=== PATIENT | male | born 1990 | race Caucasian/White ===

== ENCOUNTER 2019-10-08 13:00 | Emergency (ER) | payer MEDICAID ==
[~2019-10-08] VITALS: Ht 175.3 cm; Wt 80.0 kg
[~2019-10-08 13:00] MED LIST: LIDOcaine 1% W/epiNEPHrine 1:100,000 20ml vial ONE
[2019-10-08 13:08] VITALS: BP 100/78
[2019-10-08] MEDS ORDERED: bacitracin 15gm ointment TP ONE (13:55)
[2019-10-08] MEDS ORDERED: TETanus/Pertussis (Acell)/Diphther VAC/PF (Tdap-Adult) 0.5ml syringe IMVAC ONE (13:55)
== END 2019-10-08 14:40 | disposition home or self-care (01) ==
LOC: ER 13:01
DX: S01.01XA Laceration without foreign body of scalp, initial encounter (principal); S21.219A Laceration without foreign body of unspecified back wall of thorax without penetration into thoracic cavity, initial encounter; Y04.8XXA Assault by other bodily force, initial encounter; Y93.89 Activity, other specified; Y92.89 Other specified places as the place of occurrence of the external cause; Y99.8 Other external cause status
CPT/HCPCS: 12004; 90471; 90715; 99284

== ENCOUNTER 2020-02-18 06:24 | Emergency (ER) | payer MEDICAID ==
[~2020-02-18] VITALS: Ht 175.3 cm; Wt 72.7 kg
[2020-02-18 06:37] VITALS: BP 122/68
== END 2020-02-18 07:20 | disposition home or self-care (01) ==
LOC: ER 06:25
DX: F11.10 Opioid abuse, uncomplicated (principal); F17.200 Nicotine dependence, unspecified, uncomplicated; Z72.89 Other problems related to lifestyle
CPT/HCPCS: 99281

== ENCOUNTER 2024-09-07 09:18 | Outpatient (CLI) | payer MEDICAID | END 2024-09-07 23:59 | disposition home or self-care (01) | LOC: RAD 09:18 | PROVIDERS: ATTEND Physician Assistant | DX: I44.0 Atrioventricular block, first degree (principal); F11.20 Opioid dependence, uncomplicated | CPT/HCPCS: 93005 ==

== ENCOUNTER → 2024-11-29 | Outpatient (CLI) | payer MEDICAID ==
--- NOTE | 2024-11-29 07:51 | ELECTROCARDIOGRAPH REPORT ---
[facility] Test Date: 2024-11-29 Test Time: 07:30:39 Pat Name: WILLIS RIOJAS Department: PRE/OP CARDIOLOGY Room: Gender: M Political Advisor: JANELL : 1990 Requested By: JEFF CHRISTIAN Order Number: [id number] Reading MD: Dr. DIDI Khanna Measurements Intervals [place] Rate: 84 P: 78 CA: 130 QRS: 75 QRSD: 91 T: 62 QT: 388 QTc: 459 Interpretive Statements Sinus rhythm Electronically Signed On 11-29-2024 19:48:[address] DIDI Khanna Please click the below link to view image of tracing.
== END | disposition home or self-care (01) ==
LOC: RAD 07:18
PROVIDERS: ATTEND Physician Assistant
DX: F11.20 Opioid dependence, uncomplicated (principal); I49.8 Other specified cardiac arrhythmias
CPT/HCPCS: 93005